=== PATIENT | male | born 1980 | race Caucasian/White ===

== ENCOUNTER 2018-01-22 05:28 | Inpatient (IN) | payer OTHER ==
[~2018-01-22] VITALS: Ht 180.3 cm; Wt 81.8 kg
[~2018-01-22 05:28] MED LIST: CYCL10 PO; DIPH25 PO; GABA-533 PO; MORP30 PO; PERCT PO; TRAM50TA4 PO
[2018-01-22] MEDS ORDERED: RINGERS SOLUTION,LACTATED 1,000 ML IV ONE ×2 (05:43→06:00)
[2018-01-22] MEDS ORDERED: CeFAZolin 2 GM/DEXTROSE 0 ML IV ONE (06:41)
[2018-01-22] MEDS ORDERED: SODIUM CHLORIDE 0.9% 0 ML IV ONE (06:45)
[2018-01-22] MEDS ORDERED: BACITRACIN 50,000 UNITS/VIAL ONE (06:46)
[2018-01-22] MEDS ORDERED: THROMBIN, BOVINE 20000 UNITS/VIAL POWDER TP ONE (06:47)
[2018-01-22] MEDS ORDERED: SODIUM CHLORIDE 0.9% 20 ML ONE (06:48)
[2018-01-22] MEDS ORDERED: GELATIN SPONGE,ABSORBABLE 50 MM TP ONE (06:48)
[2018-01-22] MEDS ORDERED: ALBUTEROL SULFATE 2.5 MG/0.5 ML NEB SOLUTION NEB ONE ×2 (07:00→07:01)
[2018-01-22] MEDS ORDERED: CeFAZolin 2 GM/DEXTROSE 50 ML IV ONE (07:00)
[2018-01-22] MEDS ORDERED: BUPIVACAINE LIPOSOME/PF 1.3%-13.3MG/ML SUSPENSION 20 ML VIAL INJ ONE ×2 (07:00→07:30)
[2018-01-22] MEDS ORDERED: 0.9% SODIUM CHLORIDE 5 ML NEB SOLUTION NEB ONE (07:01)
[2018-01-22 07:04] LABS: EOSINOPHILS % (AUTO) 7.6 % (1.0-6.0); HEMATOCRIT 38.8 % (41-53); HEMOGLOBIN 13.2 g/dL (13.5-17.5); LYMPHOCYTES # (AUTO) 2.3 K/uL (1.0-4.8); LYMPHOCYTES % (AUTO) 42.2 % (22.0-44.0); MEAN CORPUSCULAR HEMOGLOBIN 28.2 pg (26.0-34.0); MEAN CORPUSCULAR HGB CONC 34.1 G/dL (31.0-37.0); MEAN CORPUSCULAR VOLUME 83 fL (80-100); MONOCYTES # (AUTO) 0.5 K/uL (0.1-1.0); MONOCYTES % (AUTO) 9.7 % (2.0-9.0); NEUTROPHILS # (AUTO) 2.1 K/uL (1.8-7.7); NEUTROPHILS % (AUTO) 39.5 % (40.0-70.0); PLATELET COUNT (AUTO) 301 K/uL (150-450); RED BLOOD CELL COUNT(AUTO) 4.69 MIL/uL (4.50-5.90); RED CELL DISTRIBUTION WIDTH 13.3 % (11.5-14.5)
[2018-01-22 07:10] LABS: ANION GAP 6 mmol/L (8-16); CALCIUM, TOTAL 9.2 mg/dL (8.8-10.5); CARBON DIOXIDE 31 mmol/L (22-29); CHLORIDE 103 mmol/L (98-107); CREATININE 1.03 mg/dL (0.60-1.30); GLOMERULAR FILTR. RATE CALC > 60 mL/min (>60); GLUCOSE,RANDOM 72 mg/dL (70-110); POTASSIUM 3.9 mmol/L (3.5-5.1); SODIUM SERUM 140 mmol/L (136-145); UREA NITROGEN, BLOOD 8 mg/dL (7-18)
[2018-01-22 07:12] LABS: PROTHROMBIN TIME 10.4 SEC (9.4-11.6)
[2018-01-22] MEDS ORDERED: TRANEXAMIC ACID 1,000 MG in DEXTROSE 5%-WATER 50 ML IV ONE (07:15)
[2018-01-22 07:16] LABS: ALANINE AMINOTRANSFERASE 28 U/L (12-78); ALBUMIN 3.7 g/dL (3.4-5.0); ALKALINE PHOSPHATASE 83 U/L (46-116); ASPARTATE AMINOTRANSFERASE 21 U/L (15-37); BILIRUBIN,TOTAL 0.4 mg/dL (0.1-1.0); TOTAL PROTEIN, SERUM 6.8 g/dL (6.4-8.2)
[2018-01-22] MEDS ORDERED: SODIUM CHLORIDE 0.9% 1,000 ML IV ONE ×3 (07:19→11:46)
[2018-01-22] MEDS ORDERED: OxyCODONE HCL/ACETAMINOPHEN 5-325 MG TABLET PO PRN (07:30)
[2018-01-22] MEDS ORDERED: BUPIVACAINE HCL/PF 0.5% 30 ML VIAL ONE (07:43)
[2018-01-22] MEDS ORDERED: MAGNESIUM SULFATE 1 GM in DEXTROSE 5%-WATER 50 ML IV ONE (07:45)
[2018-01-22] MEDS ORDERED: MAGNESIUM SULFATE 4 GM/WATER 100 ML IV ONE (07:45)
[2018-01-22] MEDS ORDERED: HEPARIN SODIUM,PORCINE 5,000 UNITS/ML VIAL SQ ONE (08:51)
[2018-01-22] MEDS ORDERED: RINGERS SOLUTION,LACTATED 2,000 ML IV ONE (08:52)
[2018-01-22] MEDS ORDERED: MORPHINE SULFATE 30 MG ER TABLET PO SCH (09:00)
[2018-01-22] MEDS: GABAPENTIN 400 MG CAPSULE PO SCH ×3 (09:00→20:16)
[2018-01-22] MEDS: ACETAMINOPHEN 1000 MG/ISO-OSM 100 ML IV SCH ×2 (10:15→19:08)
[2018-01-22] MEDS ORDERED: MORPHINE SULFATE/PF 0.5 MG/ML 10 ML AMP IVP PRN (10:15)
[2018-01-22] MEDS ORDERED: ALBUMIN HUMAN 25%-12.5GM/50ML 50 ML ONE (10:29)
[2018-01-22] MEDS ORDERED: ZOLPIDEM TARTRATE 10 MG TABLET PO PRN (10:30)
[2018-01-22] MEDS ORDERED: CLINDAMYCIN 600 MG/D5% WATER 50 ML IV ONE (11:00)
[2018-01-22] MEDS ORDERED: PROPOFOL 1000 MG/ISO-OSM 100 ML IV ONE (11:12)
[2018-01-22] MEDS ORDERED: BACITRACIN 28.4 GM OINTMENT TP ONE (12:29)
[2018-01-22] MEDS ORDERED: ONDANSETRON HCL 4 MG/2 ML VIAL IVP PRN (13:15)
[2018-01-22] MEDS ORDERED: ACETAMINOPHEN 325 MG TABLET PO PRN (13:30)
[2018-01-22] MEDS ORDERED: MORPHINE SULFATE IV PRN (13:38)
[2018-01-22] MEDS ORDERED: DEXTROSE 5%-0.45% SODIUM CHL 1,000 ML IV PRN (13:38)
[2018-01-22] MEDS ORDERED: SODIUM CHLORIDE 0.9% IV PRN (13:38)
[2018-01-22] MEDS ORDERED: NALOXONE HCL 0.4 MG/ML VIAL IVP PRN (13:45)
[2018-01-22] MEDS ORDERED: FentaNYL CITRATE-PF 100 MCG/2 ML VIAL ONE ×2 (13:50→14:02)
[2018-01-22] MEDS: FentaNYL CITRATE-PF 100 MCG/2 ML VIAL IVP PRN ×4 (13:55→14:10)
[2018-01-22] MEDS ORDERED: MEPERIDINE-PF 25 MG/ML SYRINGE ONE (13:56)
[2018-01-22] MEDS ORDERED: HYDROmorphone 2 MG/ML SYRINGE ONE (13:59)
[2018-01-22] MEDS ORDERED: MEPERIDINE-PF 25 MG/ML SYRINGE IVP PRN (14:00)
[2018-01-22] MEDS: HYDROmorphone 2 MG/ML SYRINGE IVP PRN ×4 (14:04→14:40)
[2018-01-22] MEDS ORDERED: RINGERS SOLUTION,LACTATED 500 ML IV ONE (14:15)
[2018-01-22] MEDS ORDERED: DIAZEPAM 5 MG/ML 2 ML SYRINGE IVP ONE (14:30)
[2018-01-22] MEDS: OxyCODONE HCL 5 MG IR TABLET PO PRN (15:18)
[2018-01-22] MEDS: DIAZEPAM 5 MG TABLET PO PRN (15:18)
[2018-01-22 15:27] VITALS: BP 136/93
[2018-01-22] MEDS ORDERED: MORPHINE SULFATE 4 MG/ML SYRINGE IVP PRN (16:45)
[2018-01-22] MEDS ORDERED: INFLUENZA VIRUS VACCINE QVS 2017-18 (3YR+)/PF 60 MCG/0.5 ML SYRINGE IM ONE (18:45)
[2018-01-22] MEDS ORDERED: SODIUM CHLORIDE 0.9% 250 ML IV ONE (19:00)
[2018-01-22] MEDS: OXYGEN THERAPY IH SCH (20:00)
[2018-01-22 20:09] VITALS: BP 122/80
[2018-01-22] MEDS: CeFAZolin SODIUM 1 GM in DEXTROSE 5%-WATER 10 ML IV SCH (20:15)
[2018-01-22] MEDS: MORPHINE SULFATE 15 MG ER TABLET PO SCH (20:15)
[2018-01-22] MEDS: CYCLOBENZAPRINE HCL 10 MG TABLET PO SCH (20:15)
[2018-01-22 23:31] VITALS: BP 141/92
[2018-01-23] MEDS: CeFAZolin SODIUM 1 GM in DEXTROSE 5%-WATER 10 ML IV SCH (03:01)
[2018-01-23] MEDS: DIAZEPAM 5 MG TABLET PO PRN ×3 (03:01→21:43)
[2018-01-23] MEDS: ACETAMINOPHEN 1000 MG/ISO-OSM 100 ML IV SCH (03:01)
[2018-01-23 04:20] VITALS: BP 113/74
[2018-01-23] MEDS ORDERED: VECURONIUM BROMIDE 10 MG/VIAL IVP ONE (05:13)
[2018-01-23] MEDS ORDERED: FentaNYL CITRATE-PF 250 MCG/5 ML VIAL IVP ONE (05:13)
[2018-01-23] MEDS ORDERED: SUCCINYLCHOLINE CHLORIDE 20 MG/ML 10 ML VIAL IVP ONE (05:13)
[2018-01-23] MEDS ORDERED: HYDROmorphone 2 MG/ML SYRINGE IVP ONE (05:13)
[2018-01-23] MEDS ORDERED: NEOSTIGMINE METHYLSULFATE 1 MG/ML 10 ML VIAL IVP ONE (05:13)
[2018-01-23] MEDS ORDERED: MIDAZOLAM HCL 2 MG/2 ML VIAL IVP ONE (05:13)
[2018-01-23] MEDS ORDERED: PROPOFOL 1% 20 ML VIAL IVP ONE (05:13)
[2018-01-23] MEDS ORDERED: 0.9% SODIUM CHLORIDE 10 ML VIAL IVP ONE (05:13)
[2018-01-23] MEDS ORDERED: LIDOCAINE HCL/PF 2% 5 ML VIAL IM ONE (05:13)
[2018-01-23] MEDS ORDERED: GLYCOPYRROLATE 0.2 MG/ML VIAL IM ONE (05:13)
[2018-01-23] MEDS ORDERED: ROCURONIUM BROMIDE 10 MG/ML 5 ML VIAL IVP ONE (05:13)
[2018-01-23] MEDS ORDERED: KETAMINE HCL 50 MG/ML 10 ML VIAL IVP ONE (05:13)
[2018-01-23] MEDS ORDERED: DEXAMETHASONE SOD PHOS 4 MG/ML VIAL IVP ONE (05:13)
[2018-01-23] MEDS: RINGERS SOLUTION,LACTATED 1,000 ML IV SCH ×2 (05:28→20:24)
[2018-01-23 06:20] LABS: BASOPHILS % (AUTO) 0.5 % (0.0-2.0); EOSINOPHILS % (AUTO) 0.7 % (1.0-6.0); HEMATOCRIT 36.3 % (41-53); HEMOGLOBIN 12.4 g/dL (13.5-17.5); LYMPHOCYTES # (AUTO) 2.3 K/uL (1.0-4.8); LYMPHOCYTES % (AUTO) 23.4 % (22.0-44.0); MEAN CORPUSCULAR HEMOGLOBIN 28.2 pg (26.0-34.0); MEAN CORPUSCULAR HGB CONC 34.1 G/dL (31.0-37.0); MEAN CORPUSCULAR VOLUME 83 fL (80-100); MONOCYTES # (AUTO) 1.1 K/uL (0.1-1.0); MONOCYTES % (AUTO) 11.3 % (2.0-9.0); NEUTROPHILS # (AUTO) 6.3 K/uL (1.8-7.7); NEUTROPHILS % (AUTO) 64.1 % (40.0-70.0); PLATELET COUNT (AUTO) 307 K/uL (150-450); RED BLOOD CELL COUNT(AUTO) 4.38 MIL/uL (4.50-5.90); RED CELL DISTRIBUTION WIDTH 13.6 % (11.5-14.5)
[2018-01-23 06:43] LABS: ANION GAP 8 mmol/L (8-16); CALCIUM, TOTAL 8.5 mg/dL (8.8-10.5); CARBON DIOXIDE 28 mmol/L (22-29); CHLORIDE 102 mmol/L (98-107); CREATININE 0.83 mg/dL (0.60-1.30); GLOMERULAR FILTR. RATE CALC > 60 mL/min (>60); GLUCOSE,RANDOM 111 mg/dL (70-110); POTASSIUM 3.9 mmol/L (3.5-5.1); SODIUM SERUM 138 mmol/L (136-145); UREA NITROGEN, BLOOD 10 mg/dL (7-18)
[2018-01-23 07:27] VITALS: BP 127/81
[2018-01-23] MEDS: GABAPENTIN 400 MG CAPSULE PO SCH ×3 (07:54→20:23)
[2018-01-23] MEDS: CYCLOBENZAPRINE HCL 10 MG TABLET PO SCH ×3 (07:54→23:19)
[2018-01-23] MEDS: MORPHINE SULFATE 15 MG ER TABLET PO SCH ×2 (07:54→20:23)
[2018-01-23] MEDS: OxyCODONE HCL 5 MG IR TABLET PO PRN ×4 (09:53→23:19)
[2018-01-23 11:30] VITALS: BP 110/73
[2018-01-23 13:30] VITALS: BP 118/80
[2018-01-23] MEDS: LIDOCAINE HCL 5% TRANSDERMAL PATCH TD SCH (14:42)
[2018-01-23] MEDS: DEXAMETHASONE SOD PHOS 4 MG/ML VIAL IVP SCH (20:29)
[2018-01-23] MEDS: -LIDODERM PATCH NOTE- MISC SCH (20:29)
[2018-01-23 20:30] VITALS: BP 113/70
[2018-01-24] VITALS (7 sets, daily range): BP systolic 108–124; BP diastolic 69–84
[2018-01-24] MEDS: DEXAMETHASONE SOD PHOS 4 MG/ML VIAL IVP SCH ×3 (02:07→18:01)
[2018-01-24] MEDS: OxyCODONE HCL 5 MG IR TABLET PO PRN ×2 (04:21→10:05)
[2018-01-24] MEDS: MORPHINE SULFATE 15 MG ER TABLET PO SCH ×2 (08:08→21:03)
[2018-01-24] MEDS: LIDOCAINE HCL 5% TRANSDERMAL PATCH TD SCH (08:08)
[2018-01-24] MEDS: GABAPENTIN 400 MG CAPSULE PO SCH ×3 (08:08→21:03)
[2018-01-24] MEDS: CYCLOBENZAPRINE HCL 10 MG TABLET PO SCH ×2 (08:09→17:03)
[2018-01-24] MEDS: RINGERS SOLUTION,LACTATED 1,000 ML IV SCH (10:27)
[2018-01-24] MEDS ORDERED: OxyCODONE HCL 5 MG IR TABLET PO PRN (13:30)
[2018-01-24] MEDS: OxyCODONE HCL 10 MG IR TABLET PO PRN ×3 (13:53→21:56)
[2018-01-24] MEDS: OXYGEN THERAPY IH SCH (20:00)
[2018-01-24] MEDS: -LIDODERM PATCH NOTE- MISC SCH (21:07)
[2018-01-24] MEDS: DIAZEPAM 5 MG TABLET PO PRN (21:56)
[2018-01-25] MEDS: OxyCODONE HCL 10 MG IR TABLET PO PRN ×3 (00:54→10:13)
[2018-01-25] MEDS: CYCLOBENZAPRINE HCL 10 MG TABLET PO SCH ×2 (00:54→08:25)
[2018-01-25] MEDS: DEXAMETHASONE SOD PHOS 4 MG/ML VIAL IVP SCH ×6 (00:54→12:38)
[2018-01-25 04:39] VITALS: BP 108/55
[2018-01-25 07:47] VITALS: BP 110/66
[2018-01-25] MEDS: MORPHINE SULFATE 15 MG ER TABLET PO SCH (08:25)
[2018-01-25] MEDS: GABAPENTIN 400 MG CAPSULE PO SCH (08:25)
[2018-01-25] MEDS: LIDOCAINE HCL 5% TRANSDERMAL PATCH TD SCH (09:11)
[2018-01-25 10:04] VITALS: BP 127/83
[2018-01-25] MEDS ORDERED: CEPH500 PO (10:46)
[2018-01-25] MEDS ORDERED: LIDO1ADH6 TD (10:53)
[2018-01-25] MEDS ORDERED: CYCL10 PO (10:58)
[2018-01-25] MEDS ORDERED: OXYC5 PO (11:00)
[2018-01-25 12:20] VITALS: BP 125/85
== END 2018-01-25 13:10 | disposition home health service (06) | DRG 460 ==
LOC: 4E 05:28
PROVIDERS: ADMIT Neurological Surgery; ATTEND Neurological Surgery
PROC: 0SB40ZZ Excision of Lumbosacral Disc, Open Approach (ICD-10-PCS; 2018-01-22)
PROC: 0SG30AJ Fusion of Lumbosacral Joint with Interbody Fusion Device, Posterior Approach, Anterior Column, Open Approach (ICD-10-PCS; 2018-01-22)
PROC: 01NB0ZZ Release Lumbar Nerve, Open Approach (ICD-10-PCS; 2018-01-22)
PROC: 00PV0JZ Removal of Synthetic Substitute from Spinal Cord, Open Approach (ICD-10-PCS; 2018-01-22)
PROC: 4A11X4G Monitoring of Peripheral Nervous Electrical Activity, Intraoperative, External Approach (ICD-10-PCS; 2018-01-22)
PROC: 0SG10AJ Fusion of 2 or more Lumbar Vertebral Joints with Interbody Fusion Device, Posterior Approach, Anterior Column, Open Approach (ICD-10-PCS; principal; 2018-01-22 07:30)
DX: M96.0 Pseudarthrosis after fusion or arthrodesis (principal); G89.29 Other chronic pain; M51.26 Other intervertebral disc displacement, lumbar region; Y83.8 Other surgical procedures as the cause of abnormal reaction of the patient, or of later complication, without mention of misadventure at the time of the procedure; Y82.8 Other medical devices associated with adverse incidents; Z79.899 Other long term (current) drug therapy
CPT/HCPCS: 86850; 86900; 86901; 86920; 87081; 88300; 93005; 94640; 94760; 97110; 97116; 97162; 97166; 97530; 97535; C1713; C9290; G0238; J0131; J0330; J0690; J1030; J1100; J1170; J1644; J2175; J2250; J2270; J2704; J3010; J3475; J3490; J7030; J7050; J7060; J7120; P9047